=== PATIENT | female | born 1960 | race African-American/Black ===

== ENCOUNTER 2024-12-25 10:57 | Outpatient (CLI) | payer OTHER | END 2024-12-25 10:58 | disposition home or self-care (01) | LOC: CSHMAMMO 10:57 | PROVIDERS: ATTEND Specialist | DX: R92.1 Mammographic calcification found on diagnostic imaging of breast (principal) | CPT/HCPCS: 19281; A4648 ==

== ENCOUNTER 2024-12-25 12:18 | Outpatient (CLI) | payer OTHER ==
[2024-12-25 13:03] LABS: #Basophils 0.03 10x3/uL (0.0-0.2); #Eosinophils 0.08 10x3/uL (0.0-0.5); #Monocytes 0.37 10x3/uL (0.0-1.1); #Neutrophils 2.00 10x3/uL (1.5-8.4); %Basophils 0.7 % (0.0-2.0); %Eosinophils 1.8 % (0.0-6.0); %Lymphocytes 44.0 % (18.0-47.0); %Monocytes 8.3 % (0.0-10.0); %Neutrophils 45.0 % (40.0-75.0); Hematocrit 40.3 % (34.9-44.5); Hemoglobin 12.6 g/dL (12.0-15.5); Mean Corpuscular Hemoglobin 27.1 pg (27.0-33.0); Mean Corpuscular Volume 86.7 fL (81.6-98.3); Platelet Count 259 10x3/uL (150-450); Red Blood Cell (RBC) Count 4.65 10x6/uL (3.90-5.03); White Blood Cell (WBC) Count 4.45 10x3/uL (3.5-10.5)
[2024-12-25 13:21] LABS: Anion Gap 11 mmol/L (10-20); BUN (Urea Nitrogen) 12 mg/dL (9.8-20.1); Calc. Creatinine Clearance 0 mL/min (70-130); Calcium 9.1 mg/dL (7.8-10.44); Carbon Dioxide 28 mmol/L (23-31); Chloride 104 mmol/L (98-107); Glucose 72 mg/dL (80-115); Potassium 3.9 mmol/L (3.5-5.1); Sodium 139 mmol/L (136-145)
== END 2024-12-25 12:19 | disposition home or self-care (01) ==
LOC: CSHLAB 12:18
PROVIDERS: ATTEND Specialist
DX: Z01.818 Encounter for other preprocedural examination (principal); R92.1 Mammographic calcification found on diagnostic imaging of breast
CPT/HCPCS: 71046; 80048; 85025; 93005; 93010

== ENCOUNTER 2024-12-31 05:52 | Day surgery (SDC) | payer OTHER ==
[2024-12-25 12:38] VITALS: BMI 24.7
[2024-12-31] MEDS ORDERED: Bupivacaine/Epinephrine 0.25% 30 ML VIAL ONE (06:32)
[2024-12-31] MEDS ORDERED: Lidocaine 2% MPF 10 ML AMP (For Epidural Use) ONE (06:32)
[2024-12-31] MEDS ORDERED: Ketorolac Tromethamine 30 MG (1 mL) VIAL ONE (06:51)
[2024-12-31] MEDS ORDERED: Acetaminophen 500 MG TAB ONE (06:51)
[2024-12-31] MEDS ORDERED: PROPOFOL 20 ML ONE (08:06)
[2024-12-31] MEDS ORDERED: Ondansetron PF 4 MG/2 ML Vial ONE ×2 (08:06→08:11)
[2024-12-31] MEDS ORDERED: HYDROcodone/Acetaminophen 5/325 mg Tablet ONE (09:23)
[2024-12-31] MEDS ORDERED: CEFAZOLIN 1 GM VIAL ONE (09:38)
== END 2024-12-31 09:55 | disposition home or self-care (01) ==
LOC: CSHSDC 05:52
PROVIDERS: ATTEND Specialist
PROC: 0HBT0ZZ Excision of Right Breast, Open Approach (ICD-10-PCS; principal; 2024-12-31)
DX: D24.1 Benign neoplasm of right breast (principal); N60.91 Unspecified benign mammary dysplasia of right breast; N60.11 Diffuse cystic mastopathy of right breast; N60.21 Fibroadenosis of right breast; N60.81 Other benign mammary dysplasias of right breast
CPT/HCPCS: 76098; 88307; 88341; 88342; C1713; J0690; J1100; J1885; J2405; J2704; J3010; Q9968